=== PATIENT | male | born 1990 | race Asian ===

== ENCOUNTER 2017-03-22 15:47 | Emergency (ER) | payer OTHER ==
[~2017-03-22] VITALS: Ht 175.3 cm; Wt 119.3 kg
[2017-03-22 17:32] VITALS: BP 148/80
== END 2017-03-22 17:32 | disposition home or self-care (01) ==
LOC: ED 15:47
DX: J06.9 Acute upper respiratory infection, unspecified (principal); R07.89 Other chest pain; J45.909 Unspecified asthma, uncomplicated